=== PATIENT | male | born 1945 | race Caucasian/White ===

== ENCOUNTER → 2020-06-19 | Outpatient (CLI) | payer MEDICARE, BC ==
--- NOTE | 2020-06-19 11:40 | Diagnostic Imaging Report ---
PROCEDURE: CT abdomen and pelvis without contrast. TECHNIQUE: Multiple contiguous axial images were obtained through the abdomen and pelvis without the use of intravenous contrast. Auto Exposure Controls were utilized during the CT exam to meet ALARA standards for radiation dose reduction. INDICATION: Prostate cancer. COMPARISON: There are no prior studies available for comparison. FINDINGS: The prostate gland is not enlarged measuring 4.3 cm maximum transverse diameter (normal 5 cm or less). There is no pelvic mass or adenopathy to suggest metastatic disease. The bone windows are also unremarkable for lytic or blastic lesion that would indicate metastatic disease. However, a nuclear medicine bone scan would offer more sensitive evaluation for skeletal metastatic disease. The urinary bladder is partially full and consequently not well evaluated. There is diverticulosis of the sigmoid and descending colon without evidence for acute diverticulitis. The appendix was visualized and is not abnormally thickened. There is no pelvic mass or free fluid collection evident. The left renal pelvis does seem somewhat dilated compared to the right. However, there is no sign of obstructive calculus involving the left collecting system. The reason for the dilatation in left renal pelvis is not certain but this could be secondary to a long-standing UPJ deformity There is no evidence for nephrolithiasis or for a solid renal mass. There is a 1.4 cm low density exophytic rounded lesion along the lateral aspect of the left kidney. I suspect that this is a cyst. The liver, spleen, pancreas, adrenals, gallbladder, aorta and inferior vena cava show no sign of an acute abnormality. Stomach is not well-distended and consequently difficult to assess. There is a 3.5 cm hiatal hernia. The lung bases are clear. The bone windows show no evidence for fracture or for destructive lesion. IMPRESSION: 1. The prostate gland is not enlarged and there is no evidence for metastatic disease. Additional considerations as above. 2. There is no acute abnormality of the abdomen or pelvis identified. 3. There is diverticulosis of the sigmoid colon without evidence for acute diverticulitis. 4. The slight dilatation of the left renal pelvis is of uncertain etiology. 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 Dictated by: Dictated on workstation # [id number]
--- NOTE | 2020-06-19 14:06 | Diagnostic Imaging Report ---
Whole body bone scan at 12:01 p.m. INDICATION: Prostate cancer. The study is performed before administration 26.4 mCi of 99M technetium MDP. Anterior and posterior whole-body images were obtained. There are no prior nuclear medicine bone scans available for comparison. The CT abdomen/pelvis exam of 06/19/2020 failed to show any sign of metastatic skeletal disease. On this exam there is generalized distribution of the radiotracer throughout the osseous structures. There is a small focus of increased activity along the proximal sternum on the left on the anterior images. This is more likely due to degenerative disease than to an isolated metastatic focus. An acute bony injury in this area should be considered as well. Clinical follow-up is recommended. There is no other focal area of increased or decreased activity to suggest metastatic disease or an acute abnormality. Both kidneys do show excretion of the radiotracer. IMPRESSION: 1. The small focus of increased uptake along the left lateral aspect of the proximal sternum may well be due to degenerative disease alone as opposed to a metastatic focus or an acute injury. Clinical follow up is recommended. If further imaging is desired, then CT of the chest would be recommended. 2. There is no other abnormal uptake to suggest metastatic disease. Dictated by: Dictated on workstation # [id number]
== END ==
LOC: CARD 10:12
PROVIDERS: ATTEND Urology
DX: K57.30 Diverticulosis of large intestine without perforation or abscess without bleeding (principal); N28.9 Disorder of kidney and ureter, unspecified; K44.9 Diaphragmatic hernia without obstruction or gangrene; Z85.46 Personal history of malignant neoplasm of prostate
CPT/HCPCS: 74176; 78306; A9503

== ENCOUNTER 2020-08-24 05:39 | Outpatient (CLI) | payer MEDICARE, BC ==
[~2020-08-24] VITALS: Ht 180.3 cm; Wt 125.2 kg
[2020-08-24] MEDS ORDERED: FURO20TA4 PO (10:33)
[2020-08-24] MEDS ORDERED: ASCO100024 PO (10:33)
[2020-08-24] MEDS ORDERED: FERR325T5 PO (10:33)
[2020-08-24] MEDS ORDERED: PIOG30TA71 PO (10:33)
[2020-08-24] MEDS ORDERED: CALC-250 PO (10:33)
[2020-08-24] MEDS ORDERED: UBID200C16 PO (10:33)
[2020-08-24] MEDS ORDERED: FENO200C PO (10:33)
[2020-08-24] MEDS ORDERED: MTP100TCR PO (10:33)
[2020-08-24] MEDS ORDERED: ALLO100T PO (10:33)
[2020-08-24] MEDS ORDERED: LISI40TA9 PO (10:33)
[2020-08-24] MEDS ORDERED: ASPI-999 PO (10:33)
[2020-08-24] MEDS ORDERED: OMEG1CAP58 PO (10:33)
[2020-08-24] MEDS ORDERED: GLIM2TAB4 PO (10:33)
[2020-08-24] MEDS ORDERED: AMLO-250 PO (10:33)
[2020-08-24] MEDS ORDERED: LEVO75CA5 PO (10:33)
[2020-08-24] MEDS ORDERED: PRAV20TA3 PO (10:33)
== END 2020-08-24 10:36 | disposition home or self-care (01) ==
LOC: PREOP 05:39
PROVIDERS: ATTEND Urology
DX: Z01.818 Encounter for other preprocedural examination (principal)
CPT/HCPCS: 87081

== ENCOUNTER 2020-08-29 06:05 | Day surgery (SDC) | payer MEDICARE, BC ==
[2020-08-29] VITALS (10 sets, daily range): BP systolic 97–151; BP diastolic 55–86
[~2020-08-29] VITALS: Ht 180 cm; Wt 125.2 kg
[~2020-08-29 06:05] MED LIST: ALLO100T PO; AMLO-250 PO; ASCO100024 PO; ASPI-999 PO; CALC-250 PO; FENO200C PO; FERR325T5 PO; FURO20TA4 PO; GLIM2TAB4 PO; LEVO75CA5 PO; LISI40TA9 PO; MTP100TCR PO; OMEG1CAP58 PO; PIOG30TA71 PO; PRAV20TA3 PO; UBID200C16 PO
[2020-08-29] MEDS ORDERED: ONDANSETRON 4 MG/2 ML (SDV) Z0FRAN ONE (06:40)
[2020-08-29] MEDS ORDERED: LIDOCAINE PF 2% 5 ML (XYLOCAINE) VIAL ONE (06:40)
[2020-08-29] MEDS ORDERED: fentaNYL INJ 100 MCG/2 ML AMP ONE (06:40)
[2020-08-29] MEDS ORDERED: proPOfol 200 MG/20 ML (DIPRIVAN) VIAL IV ONE (06:40)
[2020-08-29] MEDS ORDERED: SEVOFLURANE (ULTANE) 15 ML INHAL SOLN ONE ×4 (06:40→08:21)
[2020-08-29] MEDS ORDERED: cefTRIAXone 1,000 MG in WATER (STERILE) FOR INJECTION 10 ML IV ONE (07:00)
[2020-08-29] MEDS ORDERED: BACITRACIN OINTMENT 28 GM TUBE ONE (07:02)
[2020-08-29] MEDS: LACTATED RINGERS 1,000 ML IV PRN ×2 (07:13→07:55)
--- NOTE | 2020-08-29 07:21 | Progress Note-Pre Operative ---
Pre-Operative Progress Note H&P Reviewed The H&P was reviewed, patient examined and no changes noted. Date Seen by Provider: Aug 29, 2020 Time Seen by Provider: 07:20 Date H&P Reviewed: Aug 29, 2020 Time H&P Reviewed: 07:21 Pre-Operative Diagnosis: CA PROSTATE GORDON OH MD Aug 29, 2020 07:21
--- NOTE | 2020-08-29 07:25 | Progress Note-Post Operative ---
Post-Operative Progess Note Surgeon (s)/Marine Drafter (s) Surgeon GORDON OH MD AND PATTIE FERNANDEZ MD Marine Drafter: NONE Pre-Operative Diagnosis CA PROSTATE Post-Operative Diagnosis SAME Procedure & Operative Findings Date of Procedure 08/29/20 Procedure Performed/Findings BRACHYTHERAPY, SPACE OAR, CYSTOGRAM Anesthesia Type GENERAL Estimated Blood Loss Estimated blood loss (mL): NEGLIGIBLE Specimens/Packing Specimens Removed NONE Packing: NONE GORDON OH MD Aug 29, 2020 07:25
--- NOTE | 2020-08-29 07:28 | Discharge Inst-Urology ---
Discharge Inst-Urology Reconcile Patient Problems Problems Reviewed?: Yes Final Diagnosis CA PROSTATE Patient Instructions/Follow Up Plan/Assessment/Instructions Discharge with abdi and leg bag day time and large bag night time with instructions. Come 9am to DC Abdi. Rest till then Please make appointment to been seen in office in 2 weeks. Stay off ASA till then Showers, no bath Keep bowels soft and moving Increase oral fluids for 48 hours and then as needed. Diet as tolerated. If questions or concerns contact your physician Or seek help at emergency department. GORDON OH MD Aug 29, 2020 07:28
[2020-08-29] MEDS ORDERED: PHENYLEPHRINE 100 MCG/ML 10 ML (ANESTHESIA) SYR ONE (07:43)
[2020-08-29] MEDS ORDERED: ROCURONIUM 10 MG/ML 5 ML SYRINGE IV ONE (08:13)
[2020-08-29] MEDS ORDERED: GLYCOPYRROLATE 0.2 MG/ML (ROBINUL) 2 ML VIAL ONE (08:14)
[2020-08-29] MEDS ORDERED: NEOSTIGMINE 3 MG/3 ML VIAL ONE (08:14)
[2020-08-29] MEDS ORDERED: HYDROmorphone 2 MG/ML VIAL (DILAUDID) IV ONE (08:45)
[2020-08-29] MEDS ORDERED: ONDANSETRON 4 MG/2 ML (SDV) Z0FRAN IVP PRN (08:45)
[2020-08-29] MEDS ORDERED: PHEN-640 PO (09:13)
[2020-08-29] MEDS ORDERED: CIPR-225 PO (09:13)
[2020-08-29] MEDS ORDERED: TMSL.4C PO (09:13)
--- NOTE | 2020-08-29 10:41 | Diagnostic Imaging Report ---
Fluoroscopy at 827 INDICATION: Brachytherapy Fluoroscopic assistance was provided for Dr. Bermudez. 51.4 seconds of fluoroscopy time was utilized. A single spot film of the pelvis was obtained. There are radiopaque seed implants overlying the prostate gland. There is also a Frausto balloon catheter within the bladder and the bladder is partially opacified by contrast. IMPRESSION: Fluoroscopic assistance was provided for Dr. Bermudez. Dictated by: Dictated on workstation # [id number]
--- NOTE | 2020-08-29 16:38 | Anesthesia-General Post-Op ---
General Patient Condition Mental Status/LOC: Same as Preop Cardiovascular: Satisfactory Nausea/Vomiting: Absent Respiratory: Satisfactory Pain: Controlled Complications: Absent Post Op Complications Complications None Follow Up Care/Instructions Patient Instructions None needed. Anesthesia/Patient Condition Patient Condition Patient is doing well, no complaints, stable vital signs, no apparent adverse anesthesia problems. No complications reported per nursing. D/C home per [facility] Criteria: Yes KOREY UNDERWOOD CRNA Aug 29, 2020 16:38
== END 2020-08-29 10:45 | disposition home or self-care (01) ==
LOC: SDC 06:05
PROVIDERS: ATTEND Urology
DX: C61 Malignant neoplasm of prostate (principal); I10 Essential (primary) hypertension; I25.10 Atherosclerotic heart disease of native coronary artery without angina pectoris; I65.23 Occlusion and stenosis of bilateral carotid arteries; E11.9 Type 2 diabetes mellitus without complications; E78.5 Hyperlipidemia, unspecified; N28.9 Disorder of kidney and ureter, unspecified; E03.9 Hypothyroidism, unspecified; E66.9 Obesity, unspecified; Z68.39 Body mass index [BMI] 39.0-39.9, adult; Z95.1 Presence of aortocoronary bypass graft; Z79.890 Hormone replacement therapy; Z79.899 Other long term (current) drug therapy; Z79.84 Long term (current) use of oral hypoglycemic drugs
CPT/HCPCS: 55874; 55876; 76000; 76965; 77290; 77318; 77332; 77370; 77470; 77778; 82947; C1715 ×2; C1889; C2643

== ENCOUNTER 2020-09-28 08:38 | Outpatient (RCR) | payer MEDICARE, BC ==
[~2020-09-28 08:38] MED LIST changes: +CIPR-225 PO; +PHEN-640 PO; +TMSL.4C PO
== END 2020-10-09 | disposition home or self-care (01) ==
LOC: ONC 08:38
PROVIDERS: ATTEND Radiology Radiation Oncology
DX: C61 Malignant neoplasm of prostate (principal); I25.10 Atherosclerotic heart disease of native coronary artery without angina pectoris; E11.9 Type 2 diabetes mellitus without complications; E11.22 Type 2 diabetes mellitus with diabetic chronic kidney disease; I12.9 Hypertensive chronic kidney disease with stage 1 through stage 4 chronic kidney disease, or unspecified chronic kidney disease; N18.9 Chronic kidney disease, unspecified; Z85.828 Personal history of other malignant neoplasm of skin
CPT/HCPCS: 76873; G0463; 77290; 99204

== ENCOUNTER 2020-10-31 15:36 | Outpatient (RCR) | payer MEDICARE, BC | END 2021-01-29 | disposition home or self-care (01) | LOC: ONC 15:36 | PROVIDERS: ATTEND Radiology Radiation Oncology | DX: Z51.0 Encounter for antineoplastic radiation therapy (principal); C61 Malignant neoplasm of prostate; I25.10 Atherosclerotic heart disease of native coronary artery without angina pectoris; E11.22 Type 2 diabetes mellitus with diabetic chronic kidney disease; I12.9 Hypertensive chronic kidney disease with stage 1 through stage 4 chronic kidney disease, or unspecified chronic kidney disease; N18.9 Chronic kidney disease, unspecified; E78.00 Pure hypercholesterolemia, unspecified; E03.9 Hypothyroidism, unspecified; E55.9 Vitamin D deficiency, unspecified; Z85.828 Personal history of other malignant neoplasm of skin | CPT/HCPCS: 77295 ==

== ENCOUNTER 2021-03-01 09:06 | Outpatient (RCR) | payer MEDICARE, BC ==
[~2021-03-01 09:06] MED LIST changes: -FENO200C PO; +FENO200C27 PO
== END 2021-03-23 | disposition home or self-care (01) ==
LOC: ONC 09:06
PROVIDERS: ATTEND Radiology Radiation Oncology
DX: C61 Malignant neoplasm of prostate (principal); I25.10 Atherosclerotic heart disease of native coronary artery without angina pectoris; E11.22 Type 2 diabetes mellitus with diabetic chronic kidney disease; I12.9 Hypertensive chronic kidney disease with stage 1 through stage 4 chronic kidney disease, or unspecified chronic kidney disease; N18.9 Chronic kidney disease, unspecified; E78.00 Pure hypercholesterolemia, unspecified; E03.9 Hypothyroidism, unspecified; E55.9 Vitamin D deficiency, unspecified; Z85.828 Personal history of other malignant neoplasm of skin
CPT/HCPCS: 99213